=== PATIENT | male | born 1980 | race Caucasian/White ===

== ENCOUNTER → 2018-11-18 | Outpatient (CLI) | payer BC ==
--- NOTE | 2018-11-18 12:05 | PCVCIMAG ---
APPROVED REPORT Study performed: 11/18/2018 09:57:43 EXAM: Comprehensive 2D, Doppler, and color-flow Echocardiogram Patient Location: Echo lab Status: routine BSA: 2.33 HR: 95 bpmBP: 130/80 mmHg Rhythm: NSR Other Information Study Quality: Adequate Risk Factors: Cardiac Risk Factors: Hyperlipidemia Indications Abnormal ECG Chest Pain 2D Dimensions IVSd: 10.95 (7-11mm)LVOT Diam: 21.19 (18-24mm) LVDd: 39.73 mm PWd: 8.81 (7-11mm)Ascending Ao: 33.04 (22-36mm) LVDs: 29.61 (25-40mm) Left Atrium: 30.91 (27-40mm) Aortic Root: 38.21 mm LV Single Plane 4CH: 61.90 % Volumes Left Atrial Volume (Systole) Single Plane 4CH: 32.37 mLSingle Plane 2CH: 27.72 mL LA ESV Index: 13.00 mL/m2 Aortic Valve AoV Peak Floyd.: 1.56 m/s AO Peak Gr.: 9.74 mmHgLVOT Max P.97 mmHg LVOT Max V: 1.32 m/s NORM Vmax: 2.98 cm2 Mitral Valve E/A Ratio: 0.9 MV Decel. Time: 162.31 ms MV E Max Floyd.: 0.82 m/s MV A Floyd.: 0.90 m/s IVRT: 83.04 ms TDI E/Lateral E': 7.45E/Medial E': 7.45 Medial E' Floyd.: 0.11 m/s Lateral E' Floyd.: 0.11 m/s Pulmonary Valve PV Peak Gr.: 2.25 mmHg Pulmonary Vein P Vein S: 0.69 m/sP Vein A: 0.35 m/s P Vein D: 0.60 m/sP Vein A Dur.: 51.9 msec P Vein S/D Ratio: 1.15 Left Ventricle The left ventricle is normal size. There is normal LV segmental wall motion. There is normal left ventricular wall thickness. Left ventricular systolic function is normal. The left ventricular ejection fraction is within the normal range. LVEF is 60-65%. The left ventricular diastolic function is normal. Right Ventricle The right ventricle is normal size. The right ventricular systolic function is normal. Atria The left atrium size is normal. The right atrium size is normal. Aortic Valve The aortic valve is normal in structure. No aortic regurgitation is present. There is no aortic valvular stenosis. Mitral Valve The mitral valve is normal in structure. There is no mitral valve regurgitation noted. No evidence of mitral valve stenosis. Tricuspid Valve The tricuspid valve is normal in structure. There is no tricuspid valve regurgitation noted. Pulmonic Valve The pulmonary valve is normal in structure. There is no pulmonic valvular regurgitation. Great Vessels The aortic root is normal in size. IVC is normal in size and collapses >50% with inspiration. Pericardium There is no pericardial effusion. <Conclusion> Left ventricular systolic function is normal. There is normal LV segmental wall motion. LVEF 60-65%. The aortic valve is normal in structure. No aortic regurgitation or stenosis The mitral valve is normal in structure. No mitral valve regurgitation. Pulmonary artery pressure could not be reliably ascertained There is no pericardial effusion.
--- NOTE | 2018-11-30 10:47 | PCVCIMAG ---
APPROVED REPORT Patient Location: Echo lab, Treadmill Room #: Stress Nurse: Sussy Underwood RN Indication: Hypertension, abnormal ekg. The patient exercised according to the Clifford for 11:36 mins, achieving a work levell of Max. Mets:13.70. The resting heart rate of 75 bpm rissa to a maximal heart reate of 176 bpm. The value represents 95% of the maximal age predicted heart rate. The resting blood pressure of 130/80 mmHg., rissa to a maximum blood pressure of 180/84 mmHg. The exericse test was stopped due to fatigue. Resting EKG: Sinus rhythm with leftward axis Stress electrocardiogram: No dysrhythmias. No diagnostic ischemic or echocardiographic changes. Conclusion 1. Maximal treadmill exercise study negative for exercise-induced ischemia. 2. No diagnostic ischemic electrocardiographic changes. No dysrhythmias. 3. The study was associated with good exercise capacity (13.7 METS)
== END | disposition home or self-care (01) ==
LOC: PCVCIMAG 10:12
PROVIDERS: ATTEND Internal Medicine
DX: R07.9 Chest pain, unspecified (principal); R94.31 Abnormal electrocardiogram [ECG] [EKG]; R07.2 Precordial pain
CPT/HCPCS: 93017; 93306